=== PATIENT | female | born 1970 | race Hispanic/Latino ===

== ENCOUNTER 2018-02-21 01:49 | Emergency (ER) | payer BC ==
[~2018-02-21] VITALS: Ht 152.4 cm; Wt 54.4 kg
[~2018-02-21 01:49] MED LIST: BACLOFEN10 MG PO; CIPRO500 MG PO; OMEPRAZOLE40 MG PO; SULINDAC200 MG PO
--- NOTE | 2018-02-21 03:09 | Diagnostic Imaging Report ---
HAND 3+ VIEWS RIGHT Comparison: None Clinical history: \S\DOG BITE \S\[id number] \S\0233 \S.br\ Findings: Mild DIP degenerative changes. No acute displaced fracture. No radiopaque foreign body. Impression: No acute bony abnormality or radiopaque body. Signed by: Dr Christel Combs MD on 02/21/2018 3:06 AM
[2018-02-21] MEDS ORDERED: TETANUS/DIPHTHERIA TOX ADULT 0.5 ML SYR IM ONE (03:15)
[2018-02-21] MEDS ORDERED: NEOMYCIN/POLYMYX/BACITR OINT 0.9 GM PKT ONE (03:25)
[2018-02-21] MEDS ORDERED: NEOMYCIN/POLYMYX/BACITR OINT 0.9 GM PKT TOP ONE (03:30)
[2018-02-21 03:38] VITALS: BP 138/89
== END 2018-02-21 04:00 | disposition home or self-care (01) ==
LOC: ER 01:49
DX: S60.571A Other superficial bite of hand of right hand, initial encounter (principal); W54.0XXA Bitten by dog, initial encounter; Y92.007 Garden or yard of unspecified non-institutional (private) residence as the place of occurrence of the external cause
CPT/HCPCS: 90714; 99283

== ENCOUNTER 2021-05-08 17:40 | Emergency (ER) | payer BC ==
[~2021-05-08] VITALS: Ht 152.4 cm; Wt 54.4 kg
[2021-05-08] MEDS ORDERED: SODIUM CHLORIDE 0.9% 1000ML 1,000 ML IV STA (18:52)
[2021-05-08] MEDS ORDERED: ONDANSETRON HCL INJ 2MG/ML 2ML 2 MG/ML VIAL IV STA (18:52)
[2021-05-08] MEDS ORDERED: MECLIZINE HCL 12.5 MG TAB PO ONE (19:00)
[2021-05-08 19:05] LABS: BASOPHILS % 0.1 % (0.0-1.0); HEMATOCRIT 45.5 % (34.2-44.1); HEMOGLOBIN 14.9 g/dL (12.0-16.0); LYMPHOCYTES # (AUTO) 2.1 (1.0-3.2); LYMPHOCYTES % 30.1 % (18.0-39.1); MEAN CORPUSCULAR HGB CONC 32.7 g/dL (31-35); MEAN CORPUSCULAR VOLUME 88.7 fL (81-99); MONOCYTES # (AUTO) 0.3 (0.2-0.8); MONOCYTES % 3.9 % (4.4-11.3); NEUTROPHILS # (AUTO) 4.6 (2.1-6.9); NEUTROPHILS % 65.5 % (38.7-80.0); PLATELET COUNT 369 x10e3/uL (140-360); RED BLOOD COUNT 5.13 x10e6/uL (3.6-5.1); RED CELL DISTRIBUTION WIDTH 14.1 % (11.7-14.4)
[2021-05-08 19:11] LABS: COLOR,URINE YELLOW (YELLOW); LEUKOCYTE ESTERASE ,URINE NEGATIVE (NEGATIVE); NITRITE,URINE NEGATIVE (NEGATIVE); PROTEIN,URINE DIPSTICK NEGATIVE (NEGATIVE)
[2021-05-08 19:12] LABS: INR 0.97; PROTHROMBIN TIME 13.1 seconds (11.9-14.5)
[2021-05-08 19:12] LABS: CLARITY,URINE CLEAR (CLEAR); KETONES,URINE NEGATIVE (NEGATIVE); URINE UROBILINOGEN 0.2 mg/dL (0.2 - 1)
[2021-05-08 19:13] LABS: PARTIAL THROMBOPLASTIN TIME 31.8 seconds (23.8-35.5)
[2021-05-08 19:22] LABS: ALANINE AMINOTRANSFERASE 61 IU/L (0-55); ALBUMIN 4.1 g/dL (3.5-5.0); ALBUMIN/GLOBULIN RATIO 1.1 (0.8-2.0); ALKALINE PHOSPHATASE 68 IU/L (40-150); ANION GAP 13.4 mmol/L (8-16); BLOOD UREA NITROGEN 12 mg/dL (7-26); BUN/CREATININE RATIO 19 (6-25); CALCIUM 9.5 mg/dL (8.4-10.2); CARBON DIOXIDE 28 mmol/L (22-29); CHLORIDE 103 mmol/L (98-107); CREATININE, SERUM 0.64 mg/dL (0.57-1.11); EST GLOMERULAR FILTRATION RATE 98 ML/MIN (60-); GLUCOSE 113 mg/dL (74-118); POTASSIUM 4.4 mmol/L (3.5-5.1); SODIUM 140 mmol/L (136-145)
[2021-05-08 19:23] LABS: BACTERIA,URINE FEW /HPF; EPITHELIAL CELLS,URINE FEW /LPF
[2021-05-08 20:55] VITALS: BP 133/75
== END 2021-05-08 20:56 | disposition home or self-care (01) ==
LOC: ER 18:59
DX: U07.1 COVID-19 (principal); R42 Dizziness and giddiness; Z86.73 Personal history of transient ischemic attack (TIA), and cerebral infarction without residual deficits
CPT/HCPCS: 36415; 70450; 71045; 80053; 81001; 84702; 85025; 85610; 85730; 93005; 99284; J2405; J7030; J8597; U0002

== ENCOUNTER → 2022-02-04 | Day surgery (SDC) | payer BC ==
[~2022-02-04] MED LIST changes: +FENTANYL CITRATE/PF 100MCG/2 ML INJ ONE; +HAIR VITAMIN1 EACH PO; +LIDOCAINE HCL 2% LOCAL INJ 5 ML SDV VIAL INJ ONE; +MIDAZOLAM HCL 2 MG/2 ML VIAL ONE; +POVIDONE IODINE 0.05% 0.05 % ML PO ONE; +PROPOFOL IV EMULSION 10 MG/ML 20 ML VIAL ONE
[2022-02-04 14:45] VITALS: BP 109/71
== END | disposition home or self-care (01) ==
LOC: OR 11:38
PROVIDERS: ATTEND Internal Medicine Gastroenterology
DX: Z12.11 Encounter for screening for malignant neoplasm of colon (principal); K62.5 Hemorrhage of anus and rectum; K64.8 Other hemorrhoids; Z20.822 Contact with and (suspected) exposure to COVID-19; M06.9 Rheumatoid arthritis, unspecified; M19.90 Unspecified osteoarthritis, unspecified site; R42 Dizziness and giddiness; Z86.73 Personal history of transient ischemic attack (TIA), and cerebral infarction without residual deficits; Z80.0 Family history of malignant neoplasm of digestive organs
CPT/HCPCS: 0223U; 36415; 45378; 81025; 93005; J2001; J2250; J2704; J3010